=== PATIENT | male | born 1995 | race Caucasian/White ===

== ENCOUNTER 2017-07-05 11:21 | Emergency (ER) | payer MEDICAID, OTHER ==
[2017-07-05 11:39] VITALS: RESP 18; TEMP 99.1; O2SAT 98
--- NOTE | 2017-07-05 12:22 | RAD ---
PROCEDURE: Radiographs of the right great toe. TECHNIQUE:: AP radiograph of the right foot, with oblique and lateral view of the right great toe. COMPARISON: None. FINDINGS: BONES: Normal. No fracture. JOINTS: Normal. SOFT TISSUES: Normal. OTHER FINDINGS: None. IMPRESSION: Normal right great toe radiographs.
--- NOTE | 2017-07-05 13:12 | C.PDOC ---
History Of Present Illness 22 year old male, otherwise well, presents to the ED with complaints of pain to the first and second toe of the right foot. Patient states he sustained the injury by accidentally slamming his toe against an object. He rates the pain as 8/10 with associated bruising and swelling. Patient denies headache, fever, or chills. Patient has no other complaints at the moment. PMD: None Time Seen by Provider: 07/05/17 11:54 Chief Complaint (Nursing): Lower Extremity Problem/Injury History Per: Patient History/Exam Limitations: no limitations Onset/Duration Of Symptoms: Days Current Symptoms Are (Timing): Still Present - Ankle/Foot Description Of Injury: Struck Against Object Past Medical History Reviewed: Historical Data, Nursing Documentation, Vital Signs Vital Signs: Last Vital Signs Temp 99.1 F 07/05/17 11:37 Pulse 95 H 07/05/17 13:16 Resp 18 07/05/17 13:16 BP 138/75 07/05/17 13:16 Pulse Ox 98 07/05/17 14:58 - Medical History PMH: Asthma (Childhood), Bronchitis Surgical History: No Surg Hx Family History: States: [place] (Uncle at 34 from [place]), CAD - Social History Hx Tobacco Use: No Hx Alcohol Use: No Hx Substance Use: No - Immunization History Hx Tetanus Toxoid Vaccination: No Hx Influenza Vaccination: No Hx Pneumococcal Vaccination: No Review Of Systems Except As Marked, All Systems Reviewed And Found Negative. Constitutional: Negative for: Fever, Chills Musculoskeletal: Positive for: Foot Pain (Pain to the first and second toe in right foot ) Neurological: Negative for: Headache Physical Exam - Physical Exam Appears: Non-toxic, No Acute Distress Skin: Normal Color, Warm, Dry Head: Atraumatic, Normacephalic Eye(s): bilateral: Normal Inspection Extremity: Tenderness (Tenderness on first and second digits of right foot ), Other (Ecchymosis on first and second digit of right foot; no crepidus) Neurological/Psych: Oriented x3 ED Course And Treatment O2 Sat by Pulse Oximetry: 98 (RA) Pulse Ox Interpretation: Normal Medical Decision Making Medical Decision Making: Impression: Right Foot Injury Plan: Tylenol 975mg PO Motrin 600mg PO Time: 1220 XRay of Right Foot FINDINGS: BONES: Normal. No fracture. JOINTS: Normal. SOFT TISSUES: Normal. OTHER FINDINGS: None. IMPRESSION: Normal right great toe radiographs. Time: 1311 Patient reports feeling much better and is stable for discharge home. Instructed to follow up with PCP in 2-3 days. Disposition Counseled Patient/Family Regarding: Studies Performed, Diagnosis, Need For Followup - Disposition Disposition: HOME/ ROUTINE Disposition Time: 13:11 Condition: STABLE Prescriptions: Ibuprofen [Motrin] 600 mg PO TID #15 tab Instructions: Contusion (DC) Forms: General Discharge Instructions, [facility] (Amharic), Work Excuse - POA Present On Arrival: None - Clinical Impression Clinical Impression: Joint pain, Contusion of foot, right - Scribe Statement The provider has reviewed the documentation as recorded by the Quinn Gallego Provider Attestation: All medical record entries made by the Quinn were at my direction and personally dictated by me. I have reviewed the chart and agree that the record accurately reflects my personal performance of the history, physical exam, medical decision making, and the department course for this patient. I have also personally directed, reviewed, and agree with the discharge instructions and disposition.
[2017-07-05 13:18] VITALS: BP 138/75; PULSE 95
== END 2017-07-05 13:17 | disposition home or self-care (01) ==
LOC: C.ER 11:21
DX: S90.31XA Contusion of right foot, initial encounter (principal); W22.8XXA Striking against or struck by other objects, initial encounter; M25.571 Pain in right ankle and joints of right foot

== ENCOUNTER 2017-11-08 23:53 | Emergency (ER) | payer OTHER ==
[2017-11-09 00:08] VITALS: RESP 18; TEMP 98.4
--- NOTE | 2017-11-09 00:47 | C.PDOC ---
History Of Present Illness 22 y/o male presents to the ED complaining of cough, nasal and chest congestion for 1 week. States the cough is worse while at work. 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 No blunt trauma or fall. Otherwise he denies weakness, numbness, tingling , saddle anesthesia, incontinence, or dysuria. Patient has PMHx of chronic back pain. Did not take any OTC meds prior to arrival. Time Seen by Provider: 11/09/17 00:29 Chief Complaint (Nursing): Cough, Cold, Congestion History Per: Patient History/Exam Limitations: no limitations Onset/Duration Of Symptoms: Days Current Symptoms Are (Timing): Still Present Past Medical History Reviewed: Historical Data, Nursing Documentation, Vital Signs Vital Signs: Last Vital Signs Temp 98.4 F 11/09/17 00:05 Pulse 82 11/09/17 00:52 Resp 18 11/09/17 00:52 BP 116/78 11/09/17 00:52 Pulse Ox 10 L 11/09/17 00:52 - Medical History PMH: Asthma (Childhood), Bronchitis Surgical History: No Surg Hx Family History: States: Unknown Family Hx, [place] (Uncle at 34 from [place]) , CAD - Social History Hx Tobacco Use: No Hx Alcohol Use: No Hx Substance Use: Yes - Immunization History Hx Tetanus Toxoid Vaccination: No Hx Influenza Vaccination: No Hx Pneumococcal Vaccination: No Review Of Systems Except As Marked, All Systems Reviewed And Found Negative. Constitutional: Negative for: Fever, Chills ENT: Positive for: Nose Congestion, Other (chest congestion) Cardiovascular: Negative for: Chest Pain Respiratory: Positive for: Cough. Negative for: Shortness of Breath Gastrointestinal: Negative for: Vomiting, Abdominal Pain Genitourinary: Negative for: Dysuria, Frequency, Incontinence Musculoskeletal: Positive for: Back Pain Neurological: Negative for: Weakness, Numbness, Incoordination Physical Exam - Physical Exam Appears: Non-toxic, No Acute Distress Skin: Normal Color, Warm, Dry Head: Atraumatic, Normacephalic Eye(s): bilateral: Normal Inspection Oral Mucosa: Moist Neck: Normal ROM Chest: Symmetrical Cardiovascular: Rhythm Regular Respiratory: Normal Breath Sounds, No Rales, No Rhonchi, No Wheezing Gastrointestinal/Abdominal: Soft, No Tenderness Back: No Vertebral Tenderness, No Decreased ROM, No Paraspinal Tenderness Extremity: Bilateral: Atraumatic, Normal Color And Temperature, Normal ROM Neurological/Psych: Oriented x3, Normal Speech, Normal Motor, Normal Sensation Gait: Steady ED Course And Treatment O2 Sat by Pulse Oximetry: 99 (RA) Pulse Ox Interpretation: Normal Progress Note: At patients request, motrin PO was given. Patient is fully ambulatory, in no acute distress, AAOx3. Patient remains afebrile, with no bony tenderness, extremity numbness or weakness, or abdominal pain. Provided with prescriptions for URI symptoms as well as flexeril for the back pain. Advised to follow up in the clinic for further management. Disposition Counseled Patient/Family Regarding: Diagnosis, Need For Followup, Rx Given - Disposition Referrals: Clinic,Med Surg [Primary Care Provider] - Disposition: HOME/ ROUTINE Disposition Time: 00:44 Condition: STABLE Prescriptions: Albuterol HFA [Ventolin HFA 90 mcg/actuation (8 g)] 2 puff IH [id number] #1 inhaler Benzonatate [Tessalon Perles] 100 mg PO TID #14 sgl Cyclobenzaprine [Cyclobenzaprine HCl] 10 mg PO HS #10 tab Ibuprofen [Motrin] 600 mg PO Q6H #20 tab Instructions: Low Back Pain (DC) Forms: [facility] (Montenegrin) - POA Present On Arrival: None - Clinical Impression Clinical Impression: Low back strain, Upper respiratory infection - 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 - Scribe Statement The provider has reviewed the documentation as recorded by the Scribe (Cindy Vaughan) All medical record entries made by the Scribe were at my direction and personally dictated by me. I have reviewed the chart and agree that the record accurately reflects my personal performance of the history, physical exam, medical decision making, and the department course for this patient. I have also personally directed, reviewed, and agree with the discharge instructions and disposition.
[2017-11-09 00:54] VITALS: BP 116/78; PULSE 82
[2017-11-09 03:59] VITALS: O2SAT 99
== END 2017-11-09 00:53 | disposition home or self-care (01) ==
LOC: C.ER 23:53 → SUPCPDRO 23:53 → C.ER 11-09 00:53
DX: S39.012A Strain of muscle, fascia and tendon of lower back, initial encounter (principal); X50.0XXA Overexertion from strenuous movement or load, initial encounter; J06.9 Acute upper respiratory infection, unspecified

== ENCOUNTER 2018-04-07 08:53 | Emergency (ER) | payer SELFPAY ==
[2018-04-07 09:01] VITALS: BMI 26.8
[2018-04-07 09:03] VITALS: BP 137/81; PULSE 84; RESP 18; TEMP 98.3; O2SAT 96
--- NOTE | 2018-04-07 10:10 | C.PDOC ---
History Of Present Illness 23 y/o male pt presents to the ER for suture removal. Pt had sutures placed on left cheek x2.5 weeks ago and was not able to come to the ER until now. Pt denies wound d/c, pain in area, itchiness, swelling, fever, chills, nausea, vomiting, diarrhea, dizziness, light headedness and SOB. Time Seen by Provider: 04/07/18 09:04 Chief Complaint (Nursing): Suture/Staple Removal History Per: Patient History/Exam Limitations: no limitations Onset/Duration Of Symptoms: Days Ago (2.5 weeks) Quality Of Symptoms: denies: Painful, Itching, Swollen, Draining Past Medical History Reviewed: Historical Data, Nursing Documentation, Vital Signs Vital Signs: Last Vital Signs Temp 98.3 F 04/07/18 09:01 Pulse 84 04/07/18 09:01 Resp 18 04/07/18 09:01 BP 137/81 04/07/18 09:01 Pulse Ox 96 04/07/18 09:01 - Medical History PMH: Asthma (Childhood), Bronchitis Family History: States: [place]Un[place] at 34 from [place] CAD - Social History Hx Tobacco Use: No Hx Alcohol Use: No Hx Substance Use: No - Immunization History Hx Tetanus Toxoid Vaccination: No Hx Influenza Vaccination: No Hx Pneumococcal Vaccination: No Review Of Systems Except As Marked, All Systems Reviewed And Found Negative. Constitutional: Negative for: Fever, Chills ENT: Negative for: Mouth Pain, Mouth Swelling Cardiovascular: Negative for: Light Headedness Respiratory: Negative for: Shortness of Breath Gastrointestinal: Negative for: Nausea, Vomiting, Diarrhea Skin: Positive for: Other (suture removal on left cheek ) Neurological: Negative for: Dizziness Physical Exam - Physical Exam Appears: Well, Non-toxic, No Acute Distress Skin: Warm, Dry Head: Normacephalic Eye(s): bilateral: Normal Inspection Nose: Normal Oral Mucosa: Moist, Other (5 sutures on left cheek ) Tongue: Normal Appearing Lips: Normal Appearing Throat: Normal Neck: Normal ROM, Supple Cardiovascular: Rhythm Regular Respiratory: Normal Breath Sounds Gastrointestinal/Abdominal: Soft, No Tenderness Neurological/Psych: Oriented x3, Normal Speech, Normal Sensation ED Course And Treatment O2 Sat by Pulse Oximetry: 96 (RA) Pulse Ox Interpretation: Normal Medical Decision Making Medical Decision Making: Plans: -- Suture removal PROCEDURE: SUTURE REMOVAL Performed by me Location: left cheek Preparation: The wound was cleaned with NS and Betadine. The area was prepped and draped in the usual sterile fashion. Procedure: In total, 5 sutures were removed. Post-Procedure: Good closure and hemostasis. The patient tolerated the procedure well and there were no complications. CSM remains intact. Disposition - Disposition Referrals: [facility] Anny Marin, [Non-Staff] - Disposition: HOME/ ROUTINE Disposition Time: 09:15 Condition: GOOD Additional Instructions: SUSAN TAN, thank you for letting us take care of you today. The emergency medical care you received today was directed at your acute symptoms. If you were prescribed any medication, please fill it and take as directed. It may take several days for your symptoms to resolve. Return to the Emergency Department if your symptoms worsen, do not improve, or if you have any other problems. Please contact your doctor or call one of the physicians/clinics you have been referred to that are listed on the Patient Visit Information form that is included in your discharge packet. Bring any paperwork you were given at d ischarge with you along with any medications you are taking to your follow up visit. Our treatment cannot replace ongoing medical care by a primary care provider outside of the emergency department. Thank you for allowing the [facility] team to be part of your care today. Follow up with your primary care doctor if you have any concerns. Instructions: Stitches Removal Forms: [facility] (Irish) - Clinical Impression Clinical Impression: Removal of suture - Scribe Statement The provider has reviewed the documentation as recorded by the Scribe [place] Do Provider Attestation: All medical record entries made by the Scribe were at my direction and personally dictated by me. I have reviewed the chart and agree that the record accurately reflects my personal performance of the history, physical exam, medical decision making, and the department course for this patient. I have also personally directed, reviewed, and agree with the discharge instructions and disposition.
== END 2018-04-07 09:27 | disposition home or self-care (01) ==
LOC: C.ER 08:53
DX: Z48.02 Encounter for removal of sutures (principal)

== ENCOUNTER 2018-06-06 22:48 | Emergency (ER) | payer SELFPAY ==
[2018-06-06 22:48] VITALS: BMI 26.8
[2018-06-06 23:25] VITALS: RESP 16
[2018-06-06] MEDS ORDERED: Sodium Chloride 0.9% 1,000 ML IV ONE (23:33)
--- NOTE | 2018-06-06 23:33 | C.PDOC ---
History Of Present Illness pt states that he felt lightheaded and nauseated at work, some dizziness, thought that he felt tat way because he did not eat. He ate , but still felt lightheaded and nauseated. No Chest pain, no visual changes, no tinnitus Time Seen by Provider: 06/06/18 23:33 Chief Complaint (Nursing): Dizziness/Lightheaded Past Medical History Reviewed: Historical Data, Nursing Documentation, Vital Signs Vital Signs: Last Vital Signs Temp 98.7 F 06/06/18 23:19 Pulse 71 06/06/18 23:19 Resp 16 06/06/18 23:19 BP 125/77 06/06/18 23:19 Pulse Ox 98 06/06/18 23:19 - Medical History PMH: Asthma (Childhood), Bronchitis Family History: States: [place]Uncle at 34 from [place] CAD - Social History Hx Tobacco Use: No Hx Alcohol Use: No Hx Substance Use: No - Immunization History Hx Tetanus Toxoid Vaccination: No Hx Influenza Vaccination: No Hx Pneumococcal Vaccination: No Review Of Systems Constitutional: Negative for: Fever, Chills Eyes: Negative for: Vision Change Cardiovascular: Negative for: Chest Pain Respiratory: Negative for: Shortness of Breath Gastrointestinal: Positive for: Nausea, Abdominal Pain. Negative for: Vomiting Genitourinary: Negative for: Dysuria Musculoskeletal: Negative for: Back Pain Skin: Negative for: Rash Neurological: Negative for: Weakness Psych: Negative for: Anxiety Physical Exam - Physical Exam Appears: Non-toxic Skin: Warm, Dry Oral Mucosa: Moist Neck: Supple Chest: Symmetrical Cardiovascular: Rhythm Regular Respiratory: No Rales, No Rhonchi, No Wheezing Gastrointestinal/Abdominal: Soft, No Tenderness, No Distention Back: No CVA Tenderness Extremity: No Tenderness Extremity: Bilateral: Atraumatic Pulses: Left Dorsalis Pedis: Normal, Right Dorsalis Pedis: Normal Neurological/Psych: Oriented x3, Other (no nystagmus) Gait: Steady ED Course And Treatment - Laboratory Results Result Diagrams: 06/06/18 23:50 06/06/18 23:50 ECG: Interpreted By Me, Viewed By Me ECG Rhythm: Sinus Rhythm (65), Nonspecific Changes O2 Sat by Pulse Oximetry: 98 Pulse Ox Interpretation: Normal Reevaluation Time: 01:44 Reassessment Condition: Improved Medical Decision Making Medical Decision Making: Upon provider reevaluation patient is feeling better, is medically stable, and requires no further treatment in the ED at this time. Patient will be discharged home with Rx for zofran . Counseling was provided and all questions were answered regarding diagnosis and need for follow up with the referred clinic. There is agreement to discharge plan. Return if symptoms persist or worsen. Disposition Counseled Patient/Family Regarding: Studies Performed, Diagnosis, Need For Followup, Rx Given - Disposition Referrals: [facility] [Outside] [facility] [Outside] Disposition: HOME/ ROUTINE Disposition Time: 23:33 Condition: FAIR Additional Instructions: Please return if symptoms recur Prescriptions: Ondansetron ODT [Zofran ODT] 1 odt PO BID PRN #6 odt PRN Reason: Nausea/Vomiting Instructions: Nausea and Vomiting, Adult (DC), Vertigo (a Type of Dizziness) Forms: [facility] ([place]) - Clinical Impression Clinical Impression: Dizziness, Nausea
[2018-06-06] MEDS ORDERED: Sodium Chloride 0.9% 1,000 ML ONE (23:41)
[2018-06-07 00:08] LABS: BASO # 0.1 K/uL (0.0-0.2); BASO % 0.6 % (0.0-2.0); EOS # 0.1 K/uL (0.0-0.7); EOS % 1.2 % (0.0-4.0); HEMOGLOBIN 15.1 g/dL (12.0-18.0); LYMPH # 3.3 K/uL (1.0-4.3); LYMPH % 33.6 % (20.0-40.0); MEAN CELL VOLUME 88.4 fL (80.0-94.0); MEAN CORPUSCULAR HEMOGLOBIN 30.6 pg (27.0-31.0); MEAN CORPUSCULAR HGB CONC 34.6 g/dL (33.0-37.0); MEAN PLATELET VOLUME 9.2 fL (7.2-11.7); MONO # 0.7 K/uL (0.0-0.8); MONO % 7.5 % (0.0-10.0); NEUT # 5.6 K/uL (1.8-7.0); NEUT % 57.1 % (50.0-75.0); RBC 4.92 Mil/uL (4.40-5.90); RED CELL DISTRIBUTION WIDTH 13.3 % (11.5-14.5); WHITE BLOOD COUNT 9.8 K/uL (4.8-10.8)
[2018-06-07 00:24] LABS: ALB/GLOB RATIO 1.6 (1.0-2.1); ALT/SGPT 15 U/L (21-72); AST/SGOT 26 U/L (17-59); BLOOD UREA NITROGEN 17 mg/dL (9-20); CALCIUM 9.7 mg/dl (8.6-10.4); GFR NON-AFRICAN AMERICAN > 60
[2018-06-07 00:42] LABS: SQUAMOUS EPITHIAL 2 /hpf (0-5); URINE AMORPHOUS SEDIMENT RARE /ul (<OCC); URINE BILIRUBIN NEGATIVE (NEGATIVE); URINE BLOOD NEGATIVE (NEGATIVE); URINE CLARITY Hazy (Clear); URINE COLOR Yellow (YELLOW); URINE GLUCOSE (UA) NORMAL (Normal); URINE LEUKOCYTE ESTERASE NEG Leu/uL (Negative); URINE PROTEIN NEGATIVE (NEGATIVE)
[2018-06-07 01:52] VITALS: BP 131/78; PULSE 75; TEMP 98.5; O2SAT 99
--- NOTE | 2018-06-08 14:00 | CARD ---
APPROVED REPORT Date of service: 06/06/2018 EKG Measurement Heart [id number] <Conclusion> Normal sinus rhythm Normal ECG
== END 2018-06-07 01:51 | disposition home or self-care (01) ==
LOC: C.ER 22:48
DX: R42 Dizziness and giddiness (principal); R11.0 Nausea
CPT/HCPCS: 80053; 81001; 82948; 85025; 93005; 96361; 96374; 99285; J2405; J7030